=== PATIENT | female | born 1980 | race Caucasian/White ===

== ENCOUNTER 2017-12-01 15:19 | Emergency (ER) | payer MEDICAID ==
[~2017-12-01] VITALS: Ht 167.6 cm; Wt 67.0 kg
[~2017-12-01 15:19] MED LIST: None per pt.
[2017-12-01 16:02] LABS: BASOPHILS # (AUTO) 0.03 x10^3/uL (0-0.1); BASOPHILS % (AUTO) 1 % (0-1); EOSINOPHILS # (AUTO) 0.19 x10^3/uL (0-0.4); EOSINOPHILS % (AUTO) 3 % (1-7); LYMPHOCYTES # (AUTO) 2.25 x10^3/uL (1-3.4); LYMPHOCYTES % (AUTO) 30 % (22-44); MD NO; MEAN CORPUSCULAR HEMOGLOBIN 28.5 pg (27.0-34.8); MEAN CORPUSCULAR HGB CONC 33.2 g/dL (32.4-35.8); MEAN CORPUSCULAR VOLUME 85.9 fL (80-100); MEAN PLATELET VOLUME 10.4 fL (7.4-10.4); MONOCYTES # (AUTO) 0.48 x10^3/uL (0.2-0.8); MONOCYTES % (AUTO) 6 % (2-9); NEUTROPHILS # (AUTO) 4.51 x10^3/uL (1.8-6.8); NEUTROPHILS % (AUTO) 61 % (42-75); PLATELET COUNT 216 x10^3/uL (130-400); RED BLOOD COUNT 4.94 x10^6/uL (3.82-5.3); RED CELL DISTRIBUTION WIDTH 15.1 % (9.6-15.2)
[2017-12-01 16:14] LABS: ALANINE AMINOTRANSFERASE 17 U/L (12-78); ALBUMIN 3.9 g/dL (3.4-5.0); ANION GAP 6 mmol/L (5-15); CALCIUM 8.4 mg/dL (8.5-10.1); CHLORIDE 108 mmol/L (98-107)
[2017-12-01 16:16] LABS: ALKALINE PHOSPHATASE 62 U/L (45-117); BILIRUBIN,TOTAL 0.3 mg/dL (0.2-1.0); TOTAL PROTEIN 7.8 g/dL (6.4-8.2)
[2017-12-01] MEDS ORDERED: HYDR50CA PO (16:25)
[2017-12-01] MEDS ORDERED: MIRT30TA PO (16:25)
[2017-12-01] MEDS ORDERED: FLUO40CA9 PO (16:26)
[2017-12-01] MEDS ORDERED: MAALOX/HYOSCYAMINE/LIDOCAINE 45 ML BTL PO ONE (16:30)
[2017-12-01 16:45] LABS: CULTURE INDICATED? YES; MICROSCOPIC INDICATED
[2017-12-01] MEDS ORDERED: MAALOX/HYOSCYAMINE/LIDOCAINE 45 ML BTL ONE (17:24)
[2017-12-01] MEDS ORDERED: CIPROFLOXACIN 500 MG TABLET ONE (17:53)
[2017-12-01 17:59] VITALS: BP 101/58
[2017-12-01] MEDS ORDERED: CIPROFLOXACIN 500 MG TABLET PO ONE (19:00)
== END 2017-12-01 18:01 | disposition home or self-care (01) ==
LOC: ED 17:55
DX: N12 Tubulo-interstitial nephritis, not specified as acute or chronic (principal); N39.0 Urinary tract infection, site not specified; F17.200 Nicotine dependence, unspecified, uncomplicated
CPT/HCPCS: 36415; 80053; 81001; 85025; 87077; 87086; 87186; 99284